=== PATIENT | female | born 1965 | race Two or more races ===

== ENCOUNTER 2025-05-03 11:46 | Emergency (ER) | payer OTHER ==
[~2025-05-03] VITALS: Ht 167.6 cm; Wt 119.3 kg
[2025-05-03 12:16] VITALS: BP 139/80; O2SAT 99
[2025-05-03] MEDS ORDERED: MOUNJARO5 MG/0.5 M SQ (12:17)
[2025-05-03] MEDS ORDERED: ACETAMINOPHEN 500 MG GEL..CAP PO ONE ×2 (14:15→15:02)
[2025-05-03] MEDS ORDERED: ORPHENADRINE CITRATE 30 MG/ML AMPUL IM ONE (14:15)
[2025-05-03] MEDS ORDERED: KETOROLAC TROMETHAMINE 60 MG VIAL IM ONE ×2 (14:15→15:02)
[2025-05-03] MEDS ORDERED: ORPHENADRINE CITRATE 30 MG/ML AMPUL ONE (15:02)
[2025-05-03] MEDS ORDERED: PEPCID AC20 MG PO (15:37)
[2025-05-03] MEDS ORDERED: NORFLEX100MG PO (15:37)
[2025-05-03] MEDS ORDERED: IBUPROFEN600 MG PO (15:37)
== END 2025-05-03 16:49 | disposition home or self-care (01) ==
LOC: ER 11:47
DX: M25.561 Pain in right knee (principal); I10 Essential (primary) hypertension; E03.8 Other specified hypothyroidism; I73.89 Other specified peripheral vascular diseases; E11.9 Type 2 diabetes mellitus without complications; Z79.4 Long term (current) use of insulin; M17.11 Unilateral primary osteoarthritis, right knee; W18.39XA Other fall on same level, initial encounter; Y93.89 Activity, other specified; Y92.013 Bedroom of single-family (private) house as the place of occurrence of the external cause; M70.51 Other bursitis of knee, right knee
CPT/HCPCS: 73560; 96372; 99283; J1885; J2360